=== PATIENT | male | born 1945 | race Hispanic/Latino ===

== ENCOUNTER → 2023-12-26 | Outpatient (CLI) | payer MEDICARE, BC ==
[~2023-12-26] MED LIST: IOHEXOL 350 MG/ML 100ML INFUS..BTL IV ONE; METOPROLOL TARTRATE 1 MG/ML 5ML VIAL IV ONE
== END | disposition home or self-care (01) ==
LOC: RAH 10:47
PROVIDERS: ATTEND Student in an Organized Health Care Education/Training Program
DX: I49.3 Ventricular premature depolarization (principal); I50.9 Heart failure, unspecified; I35.0 Nonrheumatic aortic (valve) stenosis
CPT/HCPCS: 75574; J3490; Q9967

== ENCOUNTER 2024-03-25 05:47 | Day surgery (SDC) | payer MEDICARE, BC ==
[2024-03-22 09:45] LABS: BASOPHILS # (AUTO) 0.05 K/uL (0.00-0.20); BASOPHILS % (AUTO) 0.7 % (0.0-5.0); EOSINOPHILS # (AUTO) 0.21 K/uL (0.00-0.70); HEMATOCRIT 48.2 % (42-54); IMMATURE GRANULOCYTE ABSOLUTE 0.09 K/uL (0-1); LYMPHOCYTES # (AUTO) 1.8 K/uL (1.0-4.8); LYMPHOCYTES % (AUTO) 25.6 % (21.0-51.0); MEAN CORPUSCULAR HEMOGLOBIN 31.5 pg (27.0-33.0); MEAN CORPUSCULAR HGB CONC 33.8 g/dL (32.0-36.0); MEAN CORPUSCULAR VOLUME 93.1 fL (79-99); MONOCYTES # (AUTO) 0.6 K/uL (0.1-1.0); MONOCYTES % (AUTO) 8.2 % (3.0-13.0); NEUTROPHILS # (AUTO) 4.3 K/uL (1.8-7.7); NEUTROPHILS % (AUTO) 61.2 % (40.0-77.0); PLATELET COUNT (AUTO) 221 K/uL (130-400); RED BLOOD CELL COUNT(AUTO) 5.18 MIL/uL (4.50-6.20); RED CELL DISTRIBUTION WIDTH 12.5 % (11.0-15.5)
[2024-03-22 09:46] VITALS: BP 163/74; PULSE 75; RESP 16
[2024-03-22 10:09] LABS: POTASSIUM 4.8 mmol/L (3.5-5.1)
[2024-03-22 10:40] LABS: APPEARANCE,URINE CLEAR (CLEAR); BILIRUBIN,URINE NEGATIVE (NEGATIVE); COLOR,URINE LIGHT-YELLOW (YELLOW); GLUCOSE, URINE (UA) >=1000 mg/dL (NEGATIVE); KETONES,URINE NEGATIVE (NEGATIVE); LEUKOCYTE ESTERASE ,URINE NEGATIVE Leu/uL (NEGATIVE); NITRATE,URINE NEGATIVE (NEGATIVE); OCCULT BLOOD,URINE NEGATIVE (NEGATIVE); PH,URINE 5.5 (5.0-8.0); PROTEIN,URINE NEGATIVE (NEGATIVE); UROBILINOGEN,URINE 0.2 mg/dL (0.2-1.0)
[2024-03-22 10:41] LABS: ADD UA MICROSCOPIC YES
[2024-03-22 10:45] LABS: INR 0.99 (0.85-1.15); PARTIAL THROMBOPLASTIN TIME 23.5 SEC (26.3-35.5); PROTHROMBIN TIME 10.5 SEC (9.6-11.6)
[2024-03-22 10:57] LABS: B-TYPE NATRIURETIC PEPTIDE < 5 pg/mL (0-100)
[2024-03-22 11:10] LABS: MUCUS,URINE RARE LPF (None Seen); RBC,URINE 0-1 /HPF (0-1); WBC,URINE 0-1 /HPF (0-1)
[~2024-03-25] VITALS: Ht 174 cm; Wt 125.2 kg
[2024-03-25] VITALS (8 sets, daily range): BP systolic 123–154; BP diastolic 59–80; PULSE 75–83; RESP 16–19
[~2024-03-25 05:47] MED LIST changes: +AEC81 PO; +BENZ200C53 PO; +CHOL200013 PO; +FURO20TA4 PO; +GLUC-252 PO; -IOHEXOL 350 MG/ML 100ML INFUS..BTL IV ONE; +LIRA0.6P SQ; +LISI20TA24 PO; +MAGN200T4 PO; +METO-391 PO; -METOPROLOL TARTRATE 1 MG/ML 5ML VIAL IV ONE; +MV-M-9 PO; +PRAV20TA4 PO; +VITA1CAP50 PO
[2024-03-25] MEDS: 0.9%NACL 1000ML 1,000 ML IV ONE (06:19)
[2024-03-25] MEDS ORDERED: FENTANYL CITRATE PF 50 MCG/1 ML 2ML VIAL ONE (07:32)
[2024-03-25] MEDS ORDERED: LIDOCAINE HCL 400MG/20ML VIAL ONE (07:32)
[2024-03-25] MEDS ORDERED: MIDAZOLAM HCL 1 MG/ML 2ML VIAL ONE ×2 (07:33→07:52)
[2024-03-25] MEDS ORDERED: NITROGLYCERIN 50MG VIAL ONE (07:33)
[2024-03-25] MEDS ORDERED: HEPARIN 10,000 UNIT/10ML (1,000 UNIT/ML) VIAL ONE (07:33)
[2024-03-25] MEDS ORDERED: IOHEXOL-350 75 ML VIAL IV ONE (07:33)
[2024-03-25] MEDS ORDERED: VERAPAMIL HCL 2.5 MG/ML VIAL ONE (07:33)
[2024-03-25] MEDS ORDERED: DEXTROSE 50%-WATER 50 ML DISP.SYRIN IV PRN (08:30)
[2024-03-25] MEDS ORDERED: GLUCAGON 1MG KIT 1 MG ML IM PRN (08:30)
[2024-03-25] MEDS: INSULIN HUMULIN R 100 UNIT/ML 3ML ONE (09:05)
== END 2024-03-25 10:40 | disposition home or self-care (01) ==
LOC: DAH 05:47
PROVIDERS: ATTEND Student in an Organized Health Care Education/Training Program
DX: R93.1 Abnormal findings on diagnostic imaging of heart and coronary circulation (principal); I25.110 Atherosclerotic heart disease of native coronary artery with unstable angina pectoris; I11.0 Hypertensive heart disease with heart failure; I50.32 Chronic diastolic (congestive) heart failure; G47.30 Sleep apnea, unspecified; E78.5 Hyperlipidemia, unspecified; E66.9 Obesity, unspecified; Z68.41 Body mass index [BMI] 40.0-44.9, adult; Z82.49 Family history of ischemic heart disease and other diseases of the circulatory system; Z87.891 Personal history of nicotine dependence; Z79.82 Long term (current) use of aspirin; Z79.899 Other long term (current) drug therapy; Z98.890 Other specified postprocedural states
CPT/HCPCS: 80048; 83880; 85025; 85610; 85730; 81001; 36415; 71045; 93005; 93458; 82948 ×2; J1815; C1769 ×2; C1894; A4649; J3010; J3490 ×3; J7030; J1644 ×2; J2250 ×2; Q9967; A4215; A4222; A4221; A4663; A4216; A4606; A4223 ×3; 99156; 99157

== ENCOUNTER → 2024-04-03 | Outpatient (CLI) | payer MEDICARE | END | disposition home or self-care (01) | LOC: LAB 13:31 | PROVIDERS: ATTEND Student in an Organized Health Care Education/Training Program | DX: G47.30 Sleep apnea, unspecified (principal) | CPT/HCPCS: 36415; 84402; 84403 ==